=== PATIENT | female | born 1955 | race Caucasian/White ===

== ENCOUNTER → 2020-01-21 | Outpatient (CLI) | payer OTHER ==
--- NOTE | 2020-01-21 13:36 | RAD ---
PROCEDURE: SHOULDER 2+V RIGHT CLINICAL INDICATION / HISTORY: Reason: RIGHT SHOULDER PAIN / Spl. Instructions: / History: . TECHNIQUE: AP internal and external rotation views with a Y- view were obtained. COMPARISON: None FINDINGS: No right shoulder fracture, dislocation or bone destruction is identified. There are however fractures of the right seventh and eighth ribs that show some evidence of healing. There are moderate degenerative changes at the right AC joint. No calcifications are seen in relation to the rotator cuff insertion. IMPRESSION: No shoulder dislocation or fracture but degenerative changes at the acromioclavicular joint and healing fractures of the right seventh and eighth ribs. Electronically signed by: Muna Reynolds MD (01/21/2020 1:33 PM) [id number]
== END ==
LOC: DXRAD 11:34
PROVIDERS: ATTEND Orthopaedic Surgery
DX: S22.41XD Multiple fractures of ribs, right side, subsequent encounter for fracture with routine healing (principal); M19.011 Primary osteoarthritis, right shoulder; X58.XXXD Exposure to other specified factors, subsequent encounter
CPT/HCPCS: 73030

== ENCOUNTER → 2020-03-15 | Outpatient (CLI) | payer OTHER ==
--- NOTE | 2020-03-15 14:21 | RAD ---
SHOULDER 2+V RIGHT 03/15/2020 1:00 PM INDICATION: Right shoulder pain COMPARISON: None available. TECHNIQUE: 3 views the right shoulder are provided. FINDINGS/ IMPRESSION: There is no acute fracture or dislocation. Mild acromioclavicular osteoarthrosis. Glenohumeral joint is preserved. Sclerosis along the superolateral aspect of the humeral head may reflect chronic rotator cuff arthropathy. Remote partially healed rib fractures are identified along the posterior right seventh, eighth and ninth ribs. Electronically signed by: Anjali Barcenas MD (03/15/2020 2:19 PM) [id number]
== END ==
LOC: RAD 12:50
PROVIDERS: ATTEND Orthopaedic Surgery
DX: M19.011 Primary osteoarthritis, right shoulder (principal)
CPT/HCPCS: 73030

== ENCOUNTER → 2020-05-23 | Outpatient (CLI) | payer OTHER ==
--- NOTE | 2020-05-23 17:51 | RAD ---
PROCEDURE: XR SHOULDER_RIGHT 2+ VIEWS STUDY DATE: 05/23/2020 CLINICAL INDICATION / HISTORY: Reason: post op images from surgery on 05/05/20 / . Instructions: / History: . TECHNIQUE: AP internal and external rotation views with a Y- view were obtained. COMPARISON: Right shoulder x-rays 03/15/2020 FINDINGS: Interval right reverse glenohumeral joint arthroplasty in good alignment. Skin pilar closing the wen rgical wound are present. Soft tissues otherwise unremarkable. IMPRESSION: Unremarkable immediate postop appearance to right reverse humeral arthroplasty Electronically signed by: Muna Reynolds MD (05/23/2020 5:49 PM) [id number]
== END ==
LOC: DXRAD 15:04
PROVIDERS: ATTEND Orthopaedic Surgery
DX: Z96.611 Presence of right artificial shoulder joint (principal)
CPT/HCPCS: 73030

== ENCOUNTER → 2020-07-13 | Outpatient (CLI) | payer OTHER ==
--- NOTE | 2020-07-13 14:53 | RAD ---
Right shoulder 2 views INDICATION: Right shoulder pain COMPARISON: Right shoulder x-rays of 03/15/2020 and 05/23/2020 FINDINGS: Reverse right total humeral arthroplasty is redemonstrated with interval removal of surgical skin sta ples. Alignment is anatomic. No fracture or aggressive bony lesions are seen. The soft tissues reveal no additional imaging findings. Impression: Anatomic alignment of a right reverse humeral arthroplasty. No acute osseous abnormality shown. Electronically signed by: Muna Reynolds MD (07/13/2020 2:50 PM) [id number]
== END ==
LOC: DXRAD 12:45
PROVIDERS: ATTEND Orthopaedic Surgery
DX: M25.511 Pain in right shoulder (principal); Z96.611 Presence of right artificial shoulder joint
CPT/HCPCS: 73030

== ENCOUNTER → 2021-02-28 | Outpatient (CLI) | payer OTHER ==
--- NOTE | 2021-02-28 17:40 | RAD ---
DATE: 02/28/2021 9:20 AM EXAM: MG 2D BILAT SCREENING HISTORY: Bilateral screening mammogram patient reports no current breast related issues. COMPARISON: None available at the time of dictation. Bilateral CC and MLO views of the breasts were performed. Bilateral breast tomosynthesis was not perf ormed. This study was interpreted with the benefit of Computerized Aided Detection (CAD). FINDINGS: Breast Density: SCATTERED The breast parenchyma shows scattered fibroglandular densities. Breast par enchyma level B There is a partially obscured circumscribed 1.1 cm mass in the lower outer quadrant of the left breas t, middle depth with associated biopsy marker. There are additional small circumscribed masses in shayan ateral breast. There is no dominant suspicious mass. No suspicious microcalcifications or architectur al distortion present to suggest malignancy in either breast. The visualized axillae are unremarkable. IMPRESSION: No definite mammographic evidence of malignancy. BI-RADS CATEGORY: 0 INCOMPLETE: NEEDS ADDITIONAL IMAGING EVALUATION AND/OR PRIOR MAMMOGRAMS FOR [facility]. RECOMMENDED FOLLOW-UP: Comparison to be made with prior outside mammograms. A addendum will be made upon comparison with outside images. "Our facility is accredited by the [employer] Mammography [employer]." Electronically signed by: Matteo Mathis DO (02/28/2021 5:37 PM) [id number]
== END ==
LOC: MAMMO 08:29
PROVIDERS: ATTEND Family Medicine
DX: Z12.31 Encounter for screening mammogram for malignant neoplasm of breast (principal)
CPT/HCPCS: 77067

== ENCOUNTER → 2021-09-26 | Outpatient (CLI) | payer MEDICARE, OTHER ==
--- NOTE | 2021-09-26 15:01 | RAD ---
Bone Densitometry History: Reason: SCREENING, OV FAILURE / Spl. Instructions: / History: Comparison: None Findings: Bone Densitometry was performed with dual photon absorption of the lumbar spine and proximal femurs. Lumbar Spine: Bone density is 0.925 g/cm2 for L1-L4. T-score is -2.1. Z-score is -1.3. Right total hip: Bone density is 0.886 g/cm2. T-score is -0.6. Z-score is 0.1. IMPRESSION: Osteopenia in the lumbar spine. Normal bone mineral density in the right hip.. World Health Organization definition of osteoporosis and osteopenia for women: normal equal s T score at or above -1.0 standard deviations; osteopenia equals T score between -1.0 and -2.5 stand myles deviations; osteoporosis equals T score at or below -2.5 standard deviations. Electronically signed by: Christine Carrillo MD (09/26/2021 2:58 PM) [id number]
== END ==
LOC: DXRAD 10:33
PROVIDERS: ATTEND Family Medicine
DX: M85.88 Other specified disorders of bone density and structure, other site (principal); Z78.0 Asymptomatic menopausal state
CPT/HCPCS: 77080